=== PATIENT | male | born 1980 | race Caucasian/White ===

== ENCOUNTER 2016-03-27 22:45 | Emergency (ER) | payer SELFPAY ==
[~2016-03-27] VITALS: Ht 175.3 cm; Wt 75.0 kg
[2016-03-27 22:47] VITALS: Ht 175.3 cm; Wt 75.0 kg
== END 2016-03-28 01:24 | disposition left against medical advice (07) ==
LOC: FTE 22:45
DX: Z53.21 Procedure and treatment not carried out due to patient leaving prior to being seen by health care provider (principal)